=== PATIENT | female | born 1955 | race Caucasian/White ===

== ENCOUNTER 2020-01-08 18:17 | Emergency (ER) | payer OTHER, MEDICAID ==
[~2020-01-08] VITALS: Ht 160 cm; Wt 63.5 kg
[2020-01-08 18:20] VITALS: BP_SYST 122
[2020-01-08 19:01] LABS: BASOPHILS % (AUTO) 0.3 % (0.0-2.0); EOSINOPHILS # (AUTO) 0.1 K/uL (0.0-0.4); EOSINOPHILS % (AUTO) 3.2 % (0.0-4.0); HEMOGLOBIN 12.9 g/dL (12.0-16.0); LYMPHOCYTES # (AUTO) 1.6 K/uL (1.0-5.5); LYMPHOCYTES % (AUTO) 35.9 % (20.5-51.5); MEAN CORPUSCULAR HEMOGLOBIN 31 pg (27-31); MEAN CORPUSCULAR HGB CONC 33 % (32-36); MEAN CORPUSCULAR VOLUME 92 fL (79.0-98.0); MONOCYTES # (AUTO) 0.5 K/uL (0.0-1.0); MONOCYTES % (AUTO) 11.5 % (1.7-9.3); NEUTROPHILS # (AUTO) 2.2 K/uL (1.8-7.7); NEUTROPHILS % (AUTO) 49.1 % (40.0-70.0); PLATELET COUNT (AUTO) 178 K/uL (130-430); RED BLOOD CELL COUNT(AUTO) 4.23 MIL/uL (4.2-6.2); RED CELL DISTRIBUTION WIDTH 13.5 % (9.0-15.0); WHITE BLOOD COUNT (AUTO) 4.4 K/uL (4.8-10.8)
[2020-01-08 19:09] LABS: ANION GAP 7 (5-15); CALCIUM 8.8 mg/dL (8.4-11.0); CHLORIDE 103 mmol/L (98-107); CREATININE 1.09 mg/dL (0.55-1.30); GFR AFRICAN AMERICAN 65 mL/min (>90); GLUCOSE 103 mg/dL (70-99); POTASSIUM 4.3 mmol/L (3.5-5.1); SODIUM SERUM 139 mmol/L (136-145); UREA NITROGEN, BLOOD 32 mg/dL (8-21)
[2020-01-08 19:23] LABS: ALANINE AMINOTRANSFERASE 25 U/L (12-78); ALBUMIN 3.1 g/dL (3.4-4.8); ASPARTATE AMINOTRANSFERASE 12 U/L (10-37); TOTAL BILIRUBIN 0.1 mg/dL (0.0-1.0)
[2020-01-08 19:24] LABS: ACETAMINOPHEN < 1 ug/mL (1-30); ALCOHOL, BLOOD < 3 mg/dL (<10)
[2020-01-08 20:11] LABS: CHOLESTEROL 254 mg/dL (<200); HDL CHOLESTEROL 65 mg/dL (>55); LDL CHOLESTEROL 136 mg/dL (<100); TRIGLYCERIDES 227 mg/dL (30-150)
[2020-01-08 22:45] VITALS: BP_SYST 145
== END 2020-01-08 22:45 ==
LOC: SED 18:17
DX: R45.6 Violent behavior (principal); E86.0 Dehydration; F31.9 Bipolar disorder, unspecified; I10 Essential (primary) hypertension; F17.210 Nicotine dependence, cigarettes, uncomplicated; Z71.6 Tobacco abuse counseling
CPT/HCPCS: 36415; 80053; 80061; 83036; 85025; 87081; 99285; G0480; G0481; G0482

== ENCOUNTER 2020-08-18 19:24 | Emergency (ER) | payer OTHER, MEDICAID, SELFPAY ==
[~2020-08-18] VITALS: Ht 165.1 cm; Wt 68.0 kg
[2020-08-18 19:40] VITALS: BP_SYST 145
--- NOTE | 2020-08-18 19:40 | NUR ---
Patient to ER bed 7 to gown for evaluation. Side rails up. Report given to DEANN.
--- NOTE | 2020-08-18 19:50 | NUR ---
CALM, ALERT, NABILA TO ASSUME CARE. HERE FOR C/O CP. UPON ARRIVAL DENIES CP/SOB BASELINE CONFUSION, RESP UNLABORED, SKIN WARM AND DRY. COMMUNICATES CLEARLY.
--- NOTE | 2020-08-18 20:17 | NUR ---
CALM, ALERT, EASILY AROUSED, MEAL PROVIDED, TOLERATING WELL. AMBULATING STEADY, NO DYSPNEA
[2020-08-18 20:39] LABS: EOSINOPHILS # (AUTO) 0.2 K/uL (0.0-0.4); EOSINOPHILS % (AUTO) 3.5 % (0.0-4.0); HEMATOCRIT 40.8 % (36-48); HEMOGLOBIN 13.5 g/dL (12.0-16.0); LYMPHOCYTES # (AUTO) 1.7 K/uL (1.0-5.5); LYMPHOCYTES % (AUTO) 36.3 % (20.5-51.5); MEAN CORPUSCULAR HEMOGLOBIN 30 pg (27-31); MEAN CORPUSCULAR HGB CONC 33 % (32-36); MEAN CORPUSCULAR VOLUME 91 fL (79.0-98.0); MONOCYTES # (AUTO) 0.6 K/uL (0.0-1.0); MONOCYTES % (AUTO) 12.4 % (1.7-9.3); NEUTROPHILS # (AUTO) 2.2 K/uL (1.8-7.7); NEUTROPHILS % (AUTO) 46.8 % (40.0-70.0); PLATELET COUNT (AUTO) 188 K/uL (130-430); RED BLOOD CELL COUNT(AUTO) 4.47 MIL/uL (4.2-6.2); RED CELL DISTRIBUTION WIDTH 12.4 % (9.0-15.0); WHITE BLOOD COUNT (AUTO) 4.7 K/uL (4.8-10.8)
[2020-08-18 20:54] LABS: ALBUMIN 3.5 g/dL (3.4-4.8); CREATININE 0.84 mg/dL (0.55-1.30); POTASSIUM 4.3 mmol/L (3.5-5.1); TOTAL BILIRUBIN 0.1 mg/dL (0.0-1.0)
[2020-08-18 22:27] VITALS: BP_SYST 125
--- NOTE | 2020-08-18 22:31 | NUR ---
Patient given written and verbal discharge instructions and verbalizes understanding. ER MD discussed with patient the results and treatment provided. Patient in stable condition. ID arm band removed. Patient educated on pain management and to follow up with PMD. Pain Scale 0/10 Opportunity for questions provided and answered. Medication side effect fact sheet provided.
--- NOTE | 2020-08-18 22:37 | NUR ---
[facility] REPORT TO STAFF MEMBER AT RETURING FACILTIY. AWARE OF DISCHARGE AND ETA
== END 2020-08-18 22:28 | disposition home or self-care (01) ==
LOC: SED 19:24
DX: U07.1 COVID-19 (principal); R07.89 Other chest pain; I10 Essential (primary) hypertension; G47.00 Insomnia, unspecified
CPT/HCPCS: 36415; 71045; 80053; 84484; 85025; 93005; 99285

== ENCOUNTER 2022-01-29 13:49 | Emergency (ER) | payer OTHER, MEDICAID ==
[~2022-01-29] VITALS: Ht 152.4 cm; Wt 50.8 kg
[2022-01-29 13:58] VITALS: BP_SYST 137
[2022-01-29 15:08] LABS: BASOPHILS # (AUTO) 0.1 K/uL (0.0-0.2); BASOPHILS % (AUTO) 1.1 % (0.0-2.0); EOSINOPHILS # (AUTO) 0.1 K/uL (0.0-0.4); EOSINOPHILS % (AUTO) 2.1 % (0.0-4.0); HEMATOCRIT 39.6 % (36-48); HEMOGLOBIN 13.1 g/dL (12.0-16.0); LYMPHOCYTES # (AUTO) 1.8 K/uL (1.0-5.5); LYMPHOCYTES % (AUTO) 28.4 % (20.5-51.5); MEAN CORPUSCULAR HEMOGLOBIN 29 pg (27-31); MEAN CORPUSCULAR HGB CONC 33 % (32-36); MEAN CORPUSCULAR VOLUME 88 fL (79.0-98.0); MONOCYTES # (AUTO) 0.5 K/uL (0.0-1.0); MONOCYTES % (AUTO) 8.1 % (1.7-9.3); NEUTROPHILS # (AUTO) 3.8 K/uL (1.8-7.7); NEUTROPHILS % (AUTO) 60.3 % (40.0-70.0); PLATELET COUNT (AUTO) 216 K/uL (130-430); RED CELL DISTRIBUTION WIDTH 13.1 % (9.0-15.0); WHITE BLOOD COUNT (AUTO) 6.2 K/uL (4.8-10.8)
[2022-01-29 16:05] LABS: ANION GAP 7 (5-15); CHLORIDE 104 mmol/L (98-107); SODIUM SERUM 140 mmol/L (136-145)
[2022-01-29 16:06] LABS: ALANINE AMINOTRANSFERASE 23 U/L (12-78); ASPARTATE AMINOTRANSFERASE 21 U/L (10-37); CALCIUM 8.8 mg/dL (8.4-11.0); CREATININE 0.85 mg/dL (0.55-1.30); GFR AFRICAN AMERICAN 86 mL/min (>90); GLUCOSE 104 mg/dL (70-99); TOTAL BILIRUBIN 0.2 mg/dL (0.0-1.0); UREA NITROGEN, BLOOD 29 mg/dL (8-21)
[2022-01-29 16:07] LABS: ACETAMINOPHEN < 1 ug/mL (1-30); ALBUMIN 3.5 g/dL (3.4-4.8); ALCOHOL, BLOOD 3 mg/dL (<10)
[2022-01-29 16:12] LABS: HDL CHOLESTEROL 103 mg/dL (>55); LDL CHOLESTEROL 152 mg/dL (<100); TRIGLYCERIDES 87 mg/dL (30-150)
[2022-01-29 16:13] LABS: CHOLESTEROL 302 mg/dL (<200)
[2022-01-29 18:53] VITALS: BP_SYST 128
== END 2022-01-29 18:54 ==
LOC: SED 13:49
DX: R45.1 Restlessness and agitation (principal); E78.5 Hyperlipidemia, unspecified; I10 Essential (primary) hypertension; Z79.899 Other long term (current) drug therapy; Z20.822 Contact with and (suspected) exposure to COVID-19
CPT/HCPCS: 36415; 80053; 80061; 83036; 85025; 87426; 99285; G0480; G0481; G0482